=== PATIENT | male | born 1945 | race Caucasian/White ===

== ENCOUNTER 2024-03-12 16:51 | Inpatient (IN) | payer MEDICARE, MEDICAID ==
[~2024-03-12] VITALS: Ht 180.3 cm; Wt 81.8 kg
[~2024-03-12 16:51] MED LIST: FLO0.1T PO; etomidate 2mg/ml inj. ONE
[2024-03-12] MEDS: diltiazem 5mg/ml 5ml inj. IV ONE (18:07)
[2024-03-12 18:08] LABS: ALANINE AMINOTRANSFERASE 25 U/L (12-78); ALBUMIN 3.8 G/DL (3.4-5.0); ALBUMIN/GLOBULIN RATIO 1.2 (1.1-1.5); ALKALINE PHOSPHATASE 78 IU/L (46-116); ANION GAP 9 (8-16); APTT 27 SECONDS (22-32); ASPARTATE AMINO TRANSFERASE 19 U/L (10-37); BILIRUBIN,TOTAL 1.2 MG/DL (0.1-1.0); BLOOD UREA NITROGEN 34 MG/DL (7-18); BUN/CREATININE RATIO 19.1 (10.0-20.0); CALCIUM 8.5 MG/DL (8.5-10.1); CHLORIDE 103 MMOL/L (99-107); CREATININE 1.78 MG/DL (0.60-1.10); GLUCOSE 166 MG/DL (70-104); INR 1.1 INR; POTASSIUM 4.1 MMOL/L (3.5-5.1); PROTHROMBIN TIME 11.1 SECONDS (9.0-12.0); SODIUM 139 MMOL/L (135-145); TOTAL CARBON DIOXIDE 27.4 MMOL/L (24-32); TOTAL PROTEIN 6.9 G/DL (6.4-8.2); eCRCL 35 ML/MIN; eGFR 37 ML/MIN
[2024-03-12 18:09] LABS: BASOPHILS # (AUTO) 0.1 X10'3 (0-0.2); BASOPHILS % (AUTO) 0.8 % (0-1); EOSINOPHILS # (AUTO) 0.1 X10'3 (0-0.9); EOSINOPHILS % (AUTO) 0.9 % (0-6); HEMATOCRIT 43.3 % (42.0-52.0); HEMOGLOBIN 14.9 g/dl (14.0-17.9); LYMPHOCYTES % (AUTO) 20.5 % (21-51); MEAN CORPUSCULAR HEMOGLOBIN 31.7 PG (27.0-31.0); MEAN CORPUSCULAR HGB CONC 34.3 g/dL (33.0-36.5); MEAN CORPUSCULAR VOLUME 92.5 FL (78-98); MEAN PLATELET VOLUME 9.8 FL (7.4-10.4); MONOCYTES # (AUTO) 1.2 X10'3 (0-0.9); MONOCYTES % (AUTO) 12.2 % (2-12); NEUTROPHILS # (AUTO) 6.3 X10'3 (1.8-7.7); NEUTROPHILS % (AUTO) 65.6 % (42-75); PLATELET COUNT 255 X10'3 (140-440); RED BLOOD COUNT 4.68 X10'6 (4.70-6.10); RED CELL DISTRIBUTION WIDTH 13.6 % (11.5-14.5); WHITE BLOOD COUNT 9.7 X10'3 (4.5-11.0)
[2024-03-12] MEDS: normal saline 1000ml 1,000 ML IV ONE ×2 (18:09→19:33)
[2024-03-12 18:19] LABS: FREE T4 (FREE THYROXINE) 1.11 NG/DL (0.73-1.40); PRO BRAIN NATRIURETIC PEPTIDE 2091 PG/ML (0-450); THYROID STIMULATING HORMONE 2.32 ulU/ml (0.34-4.50)
[2024-03-12 18:35] LABS: CREATINE KINASE 72 U/L (39-308)
[2024-03-12] MEDS: amiodarone/D5 360MG/200ML BAG 200 ML IV SCH (18:55)
[2024-03-12 19:23] LABS: D-DIMER 0.27 MG/L FEU (0-0.50)
[2024-03-12] MEDS: normal saline 1000ml 1,000 ML IV STA (19:32)
[2024-03-12] MEDS: amiodarone 150mg/dext, iso-os 100 ML IV ONE (19:34)
[2024-03-12] MEDS: NORepinephrine 8mg/ 250ml NS 250 ML IV SCH (22:12)
[2024-03-12] MEDS: DOPamine 400mg/D5W 250ml 250 ML IV SCH (23:16)
[2024-03-12] MEDS ORDERED: acetaminophen 325mg tablet PO PRN (23:45)
[2024-03-12] MEDS ORDERED: morphine 2 MG/ML inj. syringe IV PRN ×2 (23:45)
[2024-03-12] MEDS ORDERED: magnesium hydroxide 30ml (MOM) UD suspension PO PRN (23:45)
[2024-03-12] MEDS ORDERED: potassium Cl 20 mEq SR tablet PO PRN (23:45)
[2024-03-12] MEDS ORDERED: magnesium sulf-water 2g/50mL 50 ML IV PRN (23:45)
[2024-03-12] MEDS ORDERED: mag hydrox/Alum hydrox/simeth 30ml oral suspension PO PRN (23:45)
[2024-03-12] MEDS ORDERED: ondansetron/PF 4mg/2ml inj IV PRN (23:45)
[2024-03-12] MEDS ORDERED: magnesium sulf-water 4G/100mL 100 ML IV PRN (23:45)
[2024-03-12] MEDS ORDERED: magnesium Cl slow-release 64mg tablet PO PRN (23:45)
[2024-03-12] MEDS ORDERED: potassium Cl 40MEQ/1/2NS 520ml 520 ML IV PRN (23:45)
[2024-03-13] VITALS (18 sets, daily range): BP systolic 75–154; BP diastolic 47–91; PULSE 61–72; RESP 9–18; TEMP 97.3–98.4; O2SAT 99–100
[2024-03-13 00:08] LABS: HEMOGLOBIN A1C 5.1 % (4.5-6.2)
[2024-03-13] MEDS: normal saline 1000ml 1,000 ML IV SCH ×2 (01:50→04:33)
[2024-03-13] MEDS: CefTRIAXone 2gm/D5W 50ml BAG 50 ML IV ONE (04:07)
[2024-03-13] MEDS ORDERED: acetaminophen 325mg tablet PO PRN ×2 (04:25)
[2024-03-13] MEDS ORDERED: ondansetron/PF 4mg/2ml inj IV PRN (04:25)
[2024-03-13] MEDS: CefTRIAXone/D5W-Rocephin 1gm 50 ML IV ONE (05:10)
[2024-03-13] MEDS: etomidate 2mg/ml inj. IV ONE (06:01)
[2024-03-13] MEDS: heparin, porcine 5000 units/ml vial SQ SCH (08:00)
[2024-03-13] MEDS: K and/or MAG REPLACEMENT MC SCH (08:00)
[2024-03-13] MEDS: docusate sod 100mg capsule PO SCH (08:00)
[2024-03-13 08:10] LABS: BASOPHILS % (AUTO) 0.5 % (0-1); EOSINOPHILS # (AUTO) 0.3 X10'3 (0-0.9); EOSINOPHILS % (AUTO) 2.7 % (0-6); HEMATOCRIT 39.9 % (42.0-52.0); HEMOGLOBIN 13.4 g/dl (14.0-17.9); LYMPHOCYTES # (AUTO) 1.3 X10'3 (1.1-4.8); LYMPHOCYTES % (AUTO) 13.4 % (21-51); MEAN CORPUSCULAR HEMOGLOBIN 30.9 PG (27.0-31.0); MEAN CORPUSCULAR HGB CONC 33.6 g/dL (33.0-36.5); MEAN CORPUSCULAR VOLUME 91.9 FL (78-98); MEAN PLATELET VOLUME 9.2 FL (7.4-10.4); MONOCYTES # (AUTO) 1.3 X10'3 (0-0.9); MONOCYTES % (AUTO) 13.5 % (2-12); NEUTROPHILS # (AUTO) 6.6 X10'3 (1.8-7.7); NEUTROPHILS % (AUTO) 69.9 % (42-75); PLATELET COUNT 217 X10'3 (140-440); RED BLOOD COUNT 4.34 X10'6 (4.70-6.10); RED CELL DISTRIBUTION WIDTH 13.3 % (11.5-14.5); WHITE BLOOD COUNT 9.4 X10'3 (4.5-11.0)
[2024-03-13 08:33] LABS: ALANINE AMINOTRANSFERASE 18 U/L (12-78); ALBUMIN 3.2 G/DL (3.4-5.0); ALBUMIN/GLOBULIN RATIO 1.2 (1.1-1.5); ALKALINE PHOSPHATASE 66 IU/L (46-116); ANION GAP 6 (8-16); ASPARTATE AMINO TRANSFERASE 17 U/L (10-37); BILIRUBIN,TOTAL 0.8 MG/DL (0.1-1.0); BLOOD UREA NITROGEN 30 MG/DL (7-18); CHLORIDE 109 MMOL/L (99-107); GLUCOSE 106 MG/DL (70-104); MAGNESIUM 2.1 MG/DL (1.5-2.4); POTASSIUM 3.7 MMOL/L (3.5-5.1); SODIUM 141 MMOL/L (135-145); TOTAL CARBON DIOXIDE 26.4 MMOL/L (24-32); TOTAL PROTEIN 5.8 G/DL (6.4-8.2); eCRCL 52 ML/MIN; eGFR 58 ML/MIN
[2024-03-13] MEDS: metroNIDAZOLE-Flagyl 500mg/NS 100 ML IV SCH (09:37)
[2024-03-13] MEDS ORDERED: ASCO100031 PO (18:21)
[2024-03-13] MEDS ORDERED: OMEG1CAP61 PO (18:21)
[2024-03-13 19:17] LABS: BILIRUBIN,URINE NEGATIVE (Neg); CLARITY,URINE CLEAR (Clear); COLOR,URINE YELLOW (Yellow); GLUCOSE, URINE NEGATIVE (Neg); KETONES,URINE NEGATIVE (Neg); LEUKOCYTE ESTERASE ,URINE NEGATIVE (Neg); NITRITES, URINE NEGATIVE (Neg); OCCULT BLOOD,URINE NEGATIVE (Neg); PH,URINE 6.5 (4.8-8.0); PROTEIN,URINE NEGATIVE (Neg); UROBILINOGEN,URINE 0.2 E.U/dL (0.2-1.0)
[2024-03-13 19:33] LABS: UA COLLECTION TYPE NON-SPECIFIED
[2024-03-13 20:28] LABS: UA EOSINOPHILS NO EOS /HPF
[2024-03-14] VITALS (12 sets, daily range): BP systolic 78–150; BP diastolic 48–92; PULSE 62–73; RESP 12–20; TEMP 97.1–98.4; O2SAT 97–99
[2024-03-15] VITALS (10 sets, daily range): BP systolic 79–159; BP diastolic 47–92; PULSE 57–74; RESP 12–20; TEMP 97.1–98.6; O2SAT 97–100
[2024-03-15 09:22] LABS: BASOPHILS # (AUTO) 0.1 X10'3 (0-0.2); EOSINOPHILS # (AUTO) 0.3 X10'3 (0-0.9); EOSINOPHILS % (AUTO) 4.4 % (0-6); HEMOGLOBIN 14.7 g/dl (14.0-17.9); LYMPHOCYTES # (AUTO) 1.3 X10'3 (1.1-4.8); LYMPHOCYTES % (AUTO) 16.8 % (21-51); MEAN CORPUSCULAR HEMOGLOBIN 31.7 PG (27.0-31.0); MEAN CORPUSCULAR HGB CONC 34.9 g/dL (33.0-36.5); MEAN CORPUSCULAR VOLUME 90.6 FL (78-98); MEAN PLATELET VOLUME 8.7 FL (7.4-10.4); MONOCYTES # (AUTO) 1.1 X10'3 (0-0.9); MONOCYTES % (AUTO) 14.1 % (2-12); NEUTROPHILS # (AUTO) 4.8 X10'3 (1.8-7.7); NEUTROPHILS % (AUTO) 63.7 % (42-75); PLATELET COUNT 220 X10'3 (140-440); RED BLOOD COUNT 4.64 X10'6 (4.70-6.10); RED CELL DISTRIBUTION WIDTH 13.3 % (11.5-14.5); WHITE BLOOD COUNT 7.5 X10'3 (4.5-11.0)
[2024-03-15 09:33] LABS: ALANINE AMINOTRANSFERASE 14 U/L (12-78); ALBUMIN 3.1 G/DL (3.4-5.0); ALBUMIN/GLOBULIN RATIO 1.1 (1.1-1.5); ALKALINE PHOSPHATASE 63 IU/L (46-116); ANION GAP 7 (8-16); ASPARTATE AMINO TRANSFERASE 16 U/L (10-37); BILIRUBIN,TOTAL 0.9 MG/DL (0.1-1.0); BLOOD UREA NITROGEN 12 MG/DL (7-18); BUN/CREATININE RATIO 14.6 (10.0-20.0); CALCIUM 8.1 MG/DL (8.5-10.1); CHLORIDE 108 MMOL/L (99-107); CREATININE 0.82 MG/DL (0.60-1.10); GLUCOSE 92 MG/DL (70-104); MAGNESIUM 1.6 MG/DL (1.5-2.4); POTASSIUM 3.1 MMOL/L (3.5-5.1); SODIUM 141 MMOL/L (135-145); TOTAL CARBON DIOXIDE 26.1 MMOL/L (24-32); eCRCL 78 ML/MIN; eGFR > 90 ML/MIN
[2024-03-15] MEDS: potassium Cl 20 mEq SR tablet PO PRN (09:59)
[2024-03-15] MEDS: metroNIDAZOLE 500mg tablet PO SCH (19:47)
[2024-03-16 02:00] VITALS: BP 117/80; PULSE 57; RESP 16; TEMP 97.9; O2SAT 99
[2024-03-16 05:53] LABS: BASOPHILS # (AUTO) 0.1 X10'3 (0-0.2); BASOPHILS % (AUTO) 1.1 % (0-1); EOSINOPHILS # (AUTO) 0.4 X10'3 (0-0.9); EOSINOPHILS % (AUTO) 4.9 % (0-6); HEMATOCRIT 38.2 % (42.0-52.0); HEMOGLOBIN 13.4 g/dl (14.0-17.9); LYMPHOCYTES # (AUTO) 1.6 X10'3 (1.1-4.8); LYMPHOCYTES % (AUTO) 21.8 % (21-51); MEAN CORPUSCULAR HEMOGLOBIN 31.6 PG (27.0-31.0); MEAN CORPUSCULAR VOLUME 90.4 FL (78-98); MEAN PLATELET VOLUME 8.5 FL (7.4-10.4); MONOCYTES # (AUTO) 1.1 X10'3 (0-0.9); MONOCYTES % (AUTO) 15.7 % (2-12); NEUTROPHILS # (AUTO) 4.1 X10'3 (1.8-7.7); NEUTROPHILS % (AUTO) 56.5 % (42-75); PLATELET COUNT 210 X10'3 (140-440); RED BLOOD COUNT 4.22 X10'6 (4.70-6.10); RED CELL DISTRIBUTION WIDTH 13.5 % (11.5-14.5); WHITE BLOOD COUNT 7.2 X10'3 (4.5-11.0)
[2024-03-16 06:07] LABS: ALANINE AMINOTRANSFERASE 15 U/L (12-78); ALBUMIN 2.9 G/DL (3.4-5.0); ALKALINE PHOSPHATASE 57 IU/L (46-116); ANION GAP 7 (8-16); ASPARTATE AMINO TRANSFERASE 18 U/L (10-37); BILIRUBIN,TOTAL 0.9 MG/DL (0.1-1.0); BLOOD UREA NITROGEN 17 MG/DL (7-18); BUN/CREATININE RATIO 16.2 (10.0-20.0); CALCIUM 8.1 MG/DL (8.5-10.1); CHLORIDE 109 MMOL/L (99-107); CREATININE 1.05 MG/DL (0.60-1.10); GLUCOSE 88 MG/DL (70-104); MAGNESIUM 1.6 MG/DL (1.5-2.4); POTASSIUM 3.5 MMOL/L (3.5-5.1); SODIUM 140 MMOL/L (135-145); TOTAL CARBON DIOXIDE 23.8 MMOL/L (24-32); TOTAL PROTEIN 5.7 G/DL (6.4-8.2); eCRCL 61 ML/MIN; eGFR 68 ML/MIN
[2024-03-16 07:00] VITALS: BP 152/78; PULSE 57; RESP 16; TEMP 98.6; O2SAT 99
[2024-03-16 08:00] VITALS: BP_SYST 114; BP_SYST 142; BP_SYST 78; BP_DIAS 48; BP_DIAS 71; BP_DIAS 75; PULSE 69; PULSE 70
[2024-03-16 09:35] LABS: PLATELET ESTIMATE NORMAL; TOTAL CELLS COUNTED 100
[2024-03-16 11:00] VITALS: BP 142/75; PULSE 60; RESP 16; TEMP 97.5; O2SAT 99
[2024-03-16] MEDS ORDERED: FLO0.1T PO (11:21)
[2024-03-16] MEDS ORDERED: MIDO5TAB4 PO (11:21)
== END 2024-03-16 13:25 | disposition home or self-care (01) | DRG 280 ==
LOC: ER 16:52 → UNDOADMIN 22:14 → ED HOLD 22:14 → UNDOADMIN 03-13 07:06 → ED HOLD 03-13 07:06 → EDBEDREQTM 03-13 10:09 → ED HOLD 03-13 12:06 → PCU 3S 03-13 12:06
PROVIDERS: ADMIT Internal Medicine Critical Care Medicine; ATTEND Internal Medicine
PROC: 5A2204Z Restoration of Cardiac Rhythm, Single (ICD-10-PCS; 2024-03-12)
PROC: 05HM33Z Insertion of Infusion Device into Right Internal Jugular Vein, Percutaneous Approach (ICD-10-PCS; 2024-03-12)
PROC: B543ZZA Ultrasonography of Right Jugular Veins, Guidance (ICD-10-PCS; 2024-03-12)
PROC: BW211ZZ Computerized Tomography (CT Scan) of Abdomen and Pelvis using Low Osmolar Contrast (ICD-10-PCS; principal; 2024-03-13)
DX: I48.0 Paroxysmal atrial fibrillation (principal); I50.23 Acute on chronic systolic (congestive) heart failure; I21.A1 Myocardial infarction type 2; N17.0 Acute kidney failure with tubular necrosis; I95.1 Orthostatic hypotension; I51.7 Cardiomegaly; Z66 Do not resuscitate; N18.30 Chronic kidney disease, stage 3 unspecified; R73.9 Hyperglycemia, unspecified; K52.9 Noninfective gastroenteritis and colitis, unspecified; K80.20 Calculus of gallbladder without cholecystitis without obstruction; Z90.49 Acquired absence of other specified parts of digestive tract; Z85.038 Personal history of other malignant neoplasm of large intestine
CPT/HCPCS: 36415; 70450; 71045; 71250; 74176; 80053; 81003; 82550; 82570; 83036; 83735; 83880; 83935; 84132; 84145; 84300; 84439; 84443; 84484; 85007; 85025; 85379; 85610; 85730; 87081; 87207; 93005; 93306; 96365; 96367; 97116; 97161; 97530; 99291; A4620; A6258; C1751; G0378; J0171; J0282; J0696; J1265; J1644; J3490; J7030